=== PATIENT | female | born 1990 | race American Indian/Alaskan Native ===

== ENCOUNTER 2018-12-19 22:57 | Inpatient (IN) | payer MEDICAID ==
[2018-12-19] MEDS ORDERED: XYLOCAINE 2% INFILTRATI ONE ×2 (23:43→23:52)
[2018-12-19] MEDS ORDERED: LACTATED RINGERS 1,000 ML ONE (23:43)
[2018-12-19] MEDS ORDERED: PITOCin/NS 20 UNIT/1000ML DRIP 20,000 MILLIUNITS/1,000 ML BAG IV ONE (23:43)
[2018-12-19] MEDS ORDERED: PITOCin/NS 30 UNIT/500ML 30 UNITS/500 ML BAG IV SCH (23:45)
[2018-12-19] MEDS ORDERED: LACTATED RINGERS 1,000 ML IV SCH (23:45)
[2018-12-19] MEDS ORDERED: PITOCin/NS 20 UNIT/1000ML DRIP 20 UNITS/1,000 ML BAG IV SCH (23:45)
[2018-12-19] MEDS ORDERED: AMPICILLIN/NS 2 GM/100 ML 2 GM/100 ML BAG IV ONE (23:52)
[2018-12-19] MEDS ORDERED: BRETHINE IVP PRN (23:52)
[2018-12-19] MEDS ORDERED: BRETHINE SUB-Q PRN (23:52)
[2018-12-19] MEDS ORDERED: MINERAL OIL PO PRN (23:52)
[2018-12-19] MEDS ORDERED: SUBLIMAZE IV PRN (23:52)
[2018-12-19] MEDS ORDERED: PHENERGAN PO PRN (23:52)
[2018-12-19] MEDS ORDERED: ZOFRAN IV PRN (23:52)
[2018-12-19] MEDS ORDERED: STADOL IV PRN (23:52)
--- NOTE | 2018-12-19 23:56 | History and Physical Report ---
History of Present Illness Date of examination: 12/19/18 Date of admission: 12/19/18 23:31 Chief complaint: Labor History of present illness: Pt is a 28yo BF EDC 12/31/18; EGA 38 2/7 weeks presents to L&D complaining of RUC's q 3-4 mins. She denies ROM or bleeding. She received care at [facility] , but records are not available and GBS is unknown. Past History Past Medical History: no pertinent history Past Surgical History: no surgical history Family/Genetic History: none Social history: no significant social history, single - Obstetrical History Expected Date of Delivery: 12/31/18 Actual Gestation: 38 Week(s) 3 Day(s) Medications and Allergies Allergies Allergy/AdvReac Type Severity Reaction Status Date / Time nut - unspecified Allergy Itching Verified 12/20/18 00:24 Home Medications Medication Instructions Recorded Confirmed Last Taken Type No Known Home Medications [No 12/20/18 12/20/18 Unknown History Reported Home Medications] Review of Systems All systems: negative - Physical Exam Breasts: Positive: deferred Cardiovascular: Regular rate Lungs: Positive: Clear to auscultation Abdomen: Positive: normal appearance Genitourinary (Female): Positive: normal external genitalia Vagina: Positive: normal moisture Uterus: Positive: enlarged Extremities: Positive: normal - Obstetrical FHR: category 1 Uterine Contraction Monitor Mode: External Cervical Dilatation: 8 Cervical Effacement Percentage: 90 station: -2 Uterine Contraction Pattern: Regular Uterine Tone Measurement Phase: Contraction Uterine Contraction Intensity: Moderate Results Result Diagrams: 12/20/18 00:26 All other labs normal. Assessment and Plan - Patient Problems (1) 38 weeks gestation of Onset Date: 12/19/18 Current Visit: Yes Status: Acute Plan to address problem: A: IUP @ 38 2/7 weeks in labor Unknown GBS P: Admit to L&D for expectant vaginal delivery IV Ampicillin
[2018-12-20 00:44] LABS: Hematocrit 34.5 % (30.3-42.9); Hemoglobin 11.3 gm/dl (10.1-14.3); Mean Corpuscular HGB Conc 33 % (30-34); Mean Corpuscular Volume 90 fl (79-97); Platelet Count 345 K/mm3 (140-440); Red Blood Count 3.83 M/mm3 (3.65-5.03); Red Cell Distribution Width 16.2 % (13.2-15.2)
--- NOTE | 2018-12-20 02:02 | Procedure Note ---
OB Delivery Note - Delivery Date of Delivery: 12/20/18 Surgeon: CARL ARSHAD Estimated blood loss: 100cc - Vaginal Delivery presentation: vertex Delivery position: OP Intrapartum events: precipitous labor- <3hr Delivery induction: none Delivery augmentation: rupture of membranes Delivery monitor: external FHT, external uterine Route of delivery: Delivery placenta: spontaneous Delivery cord: 3 umbilical vessels Episiotomy: none Delivery laceration: none Anesthesia: none Delivery comments: delivered OP and placed on Mom's chest for [id number] bonding and delayed cord clamping, cut by Dad - Infant A at 1 minute: 9 at 5 minutes: 9 Gender: Female (3431gms)
[2018-12-20] MEDS ORDERED: BENADRYL PO PRN (02:05)
[2018-12-20] MEDS ORDERED: TYLENOL PO PRN (02:05)
[2018-12-20] MEDS ORDERED: TUCKS PAD TP PRN (02:05)
[2018-12-20] MEDS ORDERED: DULCOLAX PR PRN (02:05)
[2018-12-20] MEDS ORDERED: LANSINOH TP PRN (02:05)
[2018-12-20] MEDS ORDERED: MILK OF MAGNESIA PO PRN (02:05)
[2018-12-20] MEDS ORDERED: ZOFRAN IV PRN (02:05)
[2018-12-20] MEDS ORDERED: PHENERGAN PO PRN (02:05)
[2018-12-20] MEDS ORDERED: NORCO 5/325 PO PRN (02:05)
[2018-12-20] MEDS ORDERED: PHENERGAN PR PRN (02:05)
[2018-12-20] MEDS ORDERED: SODIUM CHLORIDE FLUSH SYRINGE 10 ML IV PRN (03:00)
[2018-12-20] MEDS ORDERED: PITOCin/NS 20 UNIT/1000ML DRIP 20 UNITS/1,000 ML BAG IV SCH (03:00)
[2018-12-20] MEDS ORDERED: AMPICILLIN/NS 1 GM/50 ML 1 GM/50 ML BAG IV SCH (04:00)
[2018-12-20] MEDS: IBUPROFEN PO SCH ×4 (05:09→21:49)
[2018-12-20] MEDS: PRENATAL VITAMIN PO SCH (10:30)
[2018-12-20] MEDS: FEOSOL PO SCH ×2 (12:25→21:49)
[2018-12-20] MEDS: SENOKOT S PO SCH (12:25)
[2018-12-20] MEDS: COLACE PO SCH ×2 (12:26→21:49)
[2018-12-20 15:45] LABS: Hematocrit 29.9 % (30.3-42.9); Hemoglobin 9.9 gm/dl (10.1-14.3)
[2018-12-21] MEDS ORDERED: M-M-R II VACCINE SUB-Q ONE (02:05)
[2018-12-21] MEDS ORDERED: BOOSTRIX IM ONE (06:00)
--- NOTE | 2018-12-21 07:59 | Progress Note ---
Assessment and Plan - Patient Problems (1) 38 weeks gestation of Onset Date: 12/19/18 Current Visit: Yes Status: Resolved (2) (normal spontaneous vaginal delivery) Onset Date: 12/21/18 Current Visit: Yes Status: Resolved Plan to address problem: A: S/P - PPD #1 Doing well Asymptomatic anemia - stable P: May go home today. (3) Acute blood loss anemia Onset Date: 12/21/18 Current Visit: Yes Status: Resolved Subjective - Subjective Date of service: 12/21/18 Principal diagnosis: s/p - PPD #1 Interval history: Pt is feeling well without complaints. Bleeding improved. Patient reports: appetite normal, voiding normally, pain well controlled, flatus, ambulating normally, no dizzy ambulation, no nauseated [place]: doing well, nursing well, bottle feeding Objective - Vital Signs Latest vital signs: Vital Signs Temp Pulse Resp BP Pulse Ox 12/21/18 01:20 98.0 F 94 H 18 127/54 96 12/20/18 16:39 97.9 F 95 H 16 120/63 99 12/20/18 12:22 97.4 F L 97 H 16 125/66 99 12/20/18 08:11 97.7 F 104 H 16 130/75 98 Intake and Output 12/20/18 12/21/18 12/21/18 22:59 06:59 14:59 Intake Total 480 240 Balance 480 240 Intake: Intake, Free Water 480 240 Other: # Voids Void 3 1 - Exam Breasts: Present: deferred Abdomen: Present: normal appearance, soft Uterus: Present: normal, firm, fundal height below umbilicus Extremities: Present: normal - Labs Labs: Abnormal lab results 12/20/18 Range/Units 15:00 Hgb 9.9 L (10.1-14.3) gm/dl Hct 29.9 L (30.3-42.9) % Laboratory Tests 12/20/18 12/20/18 12/20/18 00:26 00:26 00:26 WBC 11.1 H RBC 3.83 Hgb 11.3 Hct 34.5 MCV 90 MCH 30 MCHC 33 RDW 16.2 H Plt Count 345 RPR Nonreactive Blood Type A POSITIVE Antibody Screen Negative 12/20/18 15:00 WBC RBC Hgb 9.9 L Hct 29.9 L MCV MCH MCHC RDW Plt Count RPR Blood Type Antibody Screen
--- NOTE | 2018-12-21 08:46 | Discharge Summary ---
Providers - Providers Date of Admission: 12/19/18 23:31 Date of discharge: 12/21/18 Attending physician: CARL ARSHAD Primary care physician: CARL ARSHAD Hospitalization Reason for admission: active labor, IUP at term Delivery: Episiotomy: none Laceration: none Other procedures: none complications: none Discharge diagnosis: IUP at term delivered [place] baby: female Hospital course: Unremarkable. Condition at discharge: Good Disposition: DC-01 TO HOME OR SELFCARE - Discharge Diagnoses (1) 38 weeks gestation of Status: Resolved (2) (normal spontaneous vaginal delivery) Status: Resolved (3) Acute blood loss anemia Status: Resolved Plan - Discharge Medications Prescriptions: Ferrous Sulfate [Feosol 325 MG tab] 325 mg PO BID #60 tablet Ibuprofen [Motrin 600 MG tab] 600 mg PO Q6H #30 tablet Vit-Fe Fumar-FA [ Vitamin] 1 each PO QDAY #30 tablet - Provider Discharge Summary Activity: routine, no sex for 6 weeks, no heavy lifting 4 weeks, no strenuous exercise Diet: routine Instructions: routine Additional instructions: [] Smoking cessation referral if applicable(refer to patient education folder for contact #) [] Refer to [facility] Booklet Call your doctor immediately for: * Fever > 100.5 * Heavy vaginal bleeding ( >1 pad per hour) * Severe persistent headache * Shortness of breath * Reddened, hot, painful area to leg or breast * Drainage or odor from incision. * Keep incision clean and dry at all times and follow doctor's instructions regarding bathing/showering - Follow up plan Follow up: CARL ARSHAD MD [Primary Care Provider] - 6 Weeks LUIS MANUEL AHMADI CNM [Advanced Practice Nurse] - 6 Weeks
[2018-12-21] MEDS: SENOKOT S PO SCH (10:53)
[2018-12-21] MEDS: IBUPROFEN PO SCH ×3 (10:53→22:35)
[2018-12-21] MEDS: COLACE PO SCH ×2 (10:59→22:28)
[2018-12-21] MEDS: FEOSOL PO SCH ×2 (11:00→22:27)
[2018-12-21] MEDS: PRENATAL VITAMIN PO SCH (11:00)
[2018-12-22] MEDS: SENOKOT S PO SCH ×2 (00:48→11:04)
[2018-12-22] MEDS: IBUPROFEN PO SCH (04:20)
[2018-12-22] MEDS: PRENATAL VITAMIN PO SCH (10:01)
[2018-12-22] MEDS: FEOSOL PO SCH (10:01)
[2018-12-22] MEDS: COLACE PO SCH (10:01)
[2018-12-22 13:38] VITALS: BP 138/64
== END 2018-12-22 13:32 | disposition home or self-care (01) | DRG 775 ==
LOC: TRG 22:57 → LD 23:31 → OB 12-20 04:35
PROVIDERS: ADMIT Obstetrics & Gynecology; ATTEND Obstetrics & Gynecology
PROC: 10E0XZZ Delivery of Products of Conception, External Approach (ICD-10-PCS; principal; 2018-12-20)
PROC: 3E0234Z Introduction of Serum, Toxoid and Vaccine into Muscle, Percutaneous Approach (ICD-10-PCS; 2018-12-21)
DX: O62.3 Precipitate labor (principal); O99.02 Anemia complicating childbirth; D62 Acute posthemorrhagic anemia; Z3A.38 38 weeks gestation of pregnancy; Z37.0 Single live birth; Z23 Encounter for immunization
CPT/HCPCS: 36415; 85014; 85018; 85027; 86592; 86850; 86900; 86901; G0378; J0290; J0595; J2590; J7120